=== PATIENT | female | born 1955 | race Hispanic/Latino ===

== ENCOUNTER 2016-10-14 18:36 | Emergency (ER) | payer MEDICARE ==
[2016-10-14 18:38] VITALS: BMI 31.1
[2016-10-14 19:29] VITALS: BP 140/66; PULSE 81; RESP 16; TEMP 98.3; O2SAT 100
--- NOTE | 2016-10-14 19:45 | ED PDOC ---
HPI: General Adult Time Seen by Provider: 10/14/16 19:27 Chief Complaint (Nursing): Abnormal Skin Integrity Chief Complaint (Provider): Lump on abdomen History Per: Patient History/Exam Limitations: no limitations Onset/Duration Of Symptoms: Unknown Current Symptoms Are (Timing): Still Present Severity: None Additional Complaint(s): Patient is a 61 year old female presenting to the ED complaining of a lump on her abdomen. Patient is unsure if the lump is "just fat." PMD: none Past Medical History Reviewed: Historical Data, Nursing Documentation, Vital Signs Vital Signs: Last Vital Signs Temp 98.3 F 10/14/16 19:21 Pulse 81 10/14/16 19:21 Resp 16 10/14/16 19:21 BP 140/66 10/14/16 19:21 Pulse Ox 100 10/14/16 19:47 - Medical History PMH: Anxiety, Arthritis, Asthma ("HOSPITALIZED A LONG TIME AGO"), Bronchitis, Fractures ("RIGHT ANKLE-PLATES PLACED"), Gastritis, Gall Bladder Disease, HTN - Surgical History Surgical History: Cholecystectomy - Family History Family History: States: Unknown Family Hx - Immunization History Hx Tetanus Toxoid Vaccination: No Hx Influenza Vaccination: No Hx Pneumococcal Vaccination: No - Home Medications Home Medications: Ambulatory Orders Medication Instructions Recorded Albuterol Sulfate [Proair Hfa] 0.09 mg IH Q6 09/05/14 Aspirin [Aspirin EC] 81 mg PO DAILY 09/05/14 Fluticasone/Salmeterol [Advair 50 - 500 puff INH BID 09/05/14 Diskus 500/50] Metoprolol Tartrate [Metoprolol 50 mg PO DAILY 09/05/14 Tartrate] Oxycodone HCl/Acetaminophen 1 tab PO Q6 PRN 09/05/14 [Endocet 325 mg-5 mg] Ranitidine HCl [Zantac 150] 150 mg PO BID 09/05/14 Alprazolam [Xanax] 0.5 mg PO TID 12/13/14 Lidocaine [Lidopain Patch] 4 % TP DAILY 12/13/14 Nitroglycerin [Nitrostat] 0.4 mg SL Q4 PRN 12/13/14 - Allergies Allergies/Adverse Reactions: Allergies Allergy/AdvReac Type Severity Reaction Status Date / Time SEASONAL Allergy Intermediate CONGESTION Uncoded 04/02/17 19:20 Review of Systems ROS Statement: Except As Marked, All Systems Reviewed And Found Negative Constitutional: Negative for: Fever Gastrointestinal: Positive for: Other (lump on abdomen) Physical Exam - Reviewed Nursing Documentation Reviewed: Yes Vital Signs Reviewed: Yes - Physical Exam Appears: Positive for: Well, Non-toxic, No Acute Distress Head Exam: Positive for: ATRAUMATIC, NORMAL INSPECTION, NORMOCEPHALIC Skin: Positive for: Normal Color, Warm, DRY Eye Exam: Positive for: Normal appearance, EOMI Neck: Positive for: Normal, Painless ROM Cardiovascular/Chest: Positive for: Regular Rate, Rhythm. Negative for: Gallop , Murmur Respiratory: Positive for: Normal Breath Sounds. Negative for: Accessory Muscle Use, Rhonchi, Wheezing, Respiratory Distress Gastrointestinal/Abdominal: Positive for: Normal Exam, Soft. Negative for: Tenderness, Mass, Distended, Guarding, Rebound Extremity: Positive for: Normal ROM Neurologic/Psych: Positive for: Alert, Oriented - ECG O2 Sat by Pulse Oximetry: 100 (RA) Pulse Ox Interpretation: Normal Medical Decision Making Medical Decision Making: Time: 19:30 Impression: 61 y/o female with lump Plan: Patient advised to increase weight loss. Scribe Attestation: Documented by Romana العلي acting as a scribe for GALINDO Locke. Provider Attestation: All medical record entries made by the Scribe were at my direction and personally dictated by me. I have reviewed the chart and agree that the record accurately reflects my personal performance of the history, physical exam, medical decision making, and the department course for this patient. I have also personally directed, reviewed, and agree with the discharge instructions and disposition. Disposition - Clinical Impression Clinical Impression: Lipoma, Bursitis - Patient ED Disposition Is Patient to be Admitted: No Counseled Patient/Family Regarding: Diagnosis, Need For Followup, Rx Given - Disposition Disposition: Routine/Home Disposition Time: 19:59 Condition: STABLE Instructions: Elbow Bursitis (ED), Lipoma (ED)
== END 2016-10-14 20:15 | disposition home or self-care (01) ==
LOC: H.ER 18:36
DX: D17.9 Benign lipomatous neoplasm, unspecified (principal)

== ENCOUNTER 2016-12-25 12:28 | Emergency (ER) | payer MEDICARE, OTHER ==
[2016-12-25 12:28] VITALS: BMI 31.1
[2016-12-25 14:22] LABS: BASO % 0.3 % (0.0-2.0); EOS % 0.5 % (0.0-4.0); HEMATOCRIT 44.7 % (34.0-47.0); LYMPH # 2.7 K/uL (1.0-4.3); LYMPH % 28.7 % (20.0-40.0); MEAN CELL VOLUME 91.6 fl (81.0-99.0); MEAN CORPUSCULAR HEMOGLOBIN 30.7 pg (27.0-31.0); MEAN CORPUSCULAR HGB CONC 33.5 g/dL (33.0-37.0); MEAN PLATELET VOLUME 8.6 fl (7.2-11.7); MONO # 0.7 K/uL (0.0-0.8); MONO % 7.3 % (0.0-10.0); NEUT % 63.2 % (50.0-75.0); RED CELL DISTRIBUTION WIDTH 13.3 % (11.5-14.5); WHITE BLOOD COUNT 9.6 K/uL (4.8-10.8)
[2016-12-25 14:30] LABS: ALB/GLOB RATIO 1.6 (1.0-2.1); ALKALINE PHOSPHATASE 92 U/L (38-126); ALT/SGPT 37 U/L (9-52); AST/SGOT 22 U/L (14-36); BILIRUBIN,TOTAL 0.6 mg/dl (0.2-1.3); BLOOD UREA NITROGEN 10 mg/dl (7-17); CALCIUM 9.4 mg/dL (8.4-10.2); CARBON DIOXIDE 26 mmol/L (22-30); CHLORIDE 106 mmol/L (98-107); GFR AFRICAN-AMERICAN > 60; GLUCOSE,RANDOM 86 mg/dL (65-105); POTASSIUM 4.4 MMOL/L (3.6-5.0); SODIUM 143 mmol/l (132-148); TOTAL PROTEIN 7.5 G/DL (6.3-8.2)
--- NOTE | 2016-12-25 15:57 | ED PDOC ---
HPI: General Adult Time Seen by Provider: 12/25/16 13:52 Chief Complaint (Nursing): Lower Extremity Problem/Injury Chief Complaint (Provider): various complaints History Per: Patient History/Exam Limitations: no limitations Additional Complaint(s): 61yo F in ED for eval of left chronic knee pain with exacerbation last night atrauamtic preventing her form sleeping with radiation of pain to hip. denies numbness abut admits to swelling to left leg unable to put wght on leg. pt admits to sees pain mngt and received percocets for pain control and steroid inj in the knee however she takes it did not work last night. pt also c/o of left elbow pain with intermittent sharp pain over couple of months without acute trauma. Pt states that that her right foot was injured en route to ED by EMS -states that the transport chair"rolled over" her right toes now with pain swelling and inbaility to range her toes skin is intact. Past Medical History Reviewed: Historical Data, Nursing Documentation, Vital Signs Vital Signs: Last Vital Signs Temp 97.6 F 12/25/16 16:20 Pulse 73 12/25/16 16:13 Resp 19 12/25/16 16:13 BP 121/81 12/25/16 16:13 Pulse Ox 96 12/25/16 16:13 - Medical History PMH: Anxiety, Arthritis, Asthma ("HOSPITALIZED A LONG TIME AGO"), Bronchitis, Fractures ("RIGHT ANKLE-PLATES PLACED"), Gastritis, Gall Bladder Disease, HTN - Surgical History Surgical History: Cholecystectomy - Family History Family History: States: Unknown Family Hx - Immunization History Hx Tetanus Toxoid Vaccination: No Hx Influenza Vaccination: No Hx Pneumococcal Vaccination: No - Home Medications Home Medications: Ambulatory Orders Medication Instructions Recorded Albuterol Sulfate [Proair Hfa] 0.09 mg IH Q6 09/05/14 Aspirin [Aspirin EC] 81 mg PO DAILY 09/05/14 Fluticasone/Salmeterol [Advair 50 - 500 puff INH BID 09/05/14 Diskus 500/50] Metoprolol Tartrate [Metoprolol 50 mg PO DAILY 09/05/14 Tartrate] Oxycodone HCl/Acetaminophen 1 tab PO Q6 PRN 09/05/14 [Endocet 325 mg-5 mg] Ranitidine HCl [Zantac 150] 150 mg PO BID 09/05/14 Alprazolam [Xanax] 0.5 mg PO TID 12/13/14 Lidocaine [Lidopain Patch] 4 % TP DAILY 12/13/14 Nitroglycerin [Nitrostat] 0.4 mg SL Q4 PRN 12/13/14 - Allergies Allergies/Adverse Reactions: Allergies Allergy/AdvReac Type Severity Reaction Status Date / Time SEASONAL Allergy Intermediate CONGESTION Uncoded 12/25/16 12:30 Review of Systems ROS Statement: Except As Marked, All Systems Reviewed And Found Negative Constitutional: Negative for: Fever, Chills, Weakness Musculoskeletal: Positive for: Other (knee pain, foot pain and elbow pain ) Physical Exam - Reviewed Nursing Documentation Reviewed: Yes Vital Signs Reviewed: Yes - Physical Exam Appears: Positive for: Well, Non-toxic, No Acute Distress Head Exam: Positive for: ATRAUMATIC, NORMAL INSPECTION, NORMOCEPHALIC Skin: Positive for: Normal Color, Warm, DRY ENT: Positive for: Normal ENT Inspection Cardiovascular/Chest: Positive for: Regular Rate, Rhythm Respiratory: Positive for: CNT, Normal Breath Sounds Gastrointestinal/Abdominal: Positive for: Normal Exam, Bowel Sounds, Soft. Negative for: Tenderness Back: Positive for: Normal Inspection Extremity: Positive for: Other (right knee: mild swelling no efuffsion dec RO due to pain. no defomrity good pedal oulse. mild calf tenderness no hip point tenderness, right foot: mild ertyhema noted to toes, no swelling tender to touch unable to range toes. left elbo: FROM nontendern no swelling no skin changes. ) Neurologic/Psych: Positive for: Alert, Oriented - Laboratory Results Result Diagrams: 12/25/16 14:15 12/25/16 14:15 - ECG O2 Sat by Pulse Oximetry: 100 - Radiology X-Ray: Interpreted by Nd X-Ray Interpretation: No Acute Disease - CT Scan/US US Other Rad Studies (CT/US): Radiology Report Reviewed (negative. ) - Progress ED Course And Treament: Pt will get Xray of knee, elbow, and otes and US to r/oDVT pain control with torodol IV. however pain not well controlled with torodol therefore will get morphine 4mg IV Medical Decision Making Medical Decision Making: pt given a knee immbolizer, YVONNE wrap to knee and ankle. advised to continue f.u with pain mgnt and advised to get further testing of knee via MRI and orthopedic consult. VS stable in ED. improved after morphine. Disposition - Clinical Impression Clinical Impression: Foot injury, Knee pain, Elbow pain - Patient ED Disposition Is Patient to be Admitted: No Counseled Patient/Family Regarding: Studies Performed, Diagnosis, Need For Followup, Rx Given - Disposition Referrals: [facility] [Outside] Disposition: Routine/Home Disposition Time: 16:35 Condition: IMPROVED Instructions: Arthralgia (ED)
[2016-12-25 16:14] VITALS: BP 121/81; PULSE 73; RESP 19
--- NOTE | 2016-12-25 16:20 | RAD ---
PROCEDURE: Right Foot Radiographs. HISTORY: foot injury COMPARISON: None. FINDINGS: BONES: Normal. No fracture. JOINTS: Normal. SOFT TISSUES: Normal. OTHER FINDINGS: None. IMPRESSION: Normal right foot radiographs.
[2016-12-25 16:21] VITALS: TEMP 97.6
--- NOTE | 2016-12-25 16:21 | US ---
PROCEDURE: Bilateral lower extremity venous duplex Doppler. HISTORY: calf emerita b/l with swelling COMPARISON: None available. TECHNIQUE: Bilateral common femoral, superficial femoral, popliteal and posterior tibial veins were evaluated. Flow was assessed with color Doppler, compressibility, assessment of phasic flow and augmentation response. FINDINGS: COMMON FEMORAL VEIN: Right CFV: Unremarkable. Left CFV: Unremarkable. SUPERFICIAL FEMORAL VEIN: Right SFV: Unremarkable. Left SFV: Unremarkable. POPLITEAL VEIN: Right Popliteal: Unremarkable. Left Popliteal: Unremarkable. POSTERIOR TIBIAL VEIN: Right PTV: Unremarkable. Left PTV: Unremarkable. OTHER FINDINGS: None. IMPRESSION: No evidence of deep venous thrombosis.
--- NOTE | 2016-12-25 16:24 | RAD ---
PROCEDURE: Radiographs of the left elbow. HISTORY: elbow pain COMPARISON: No prior. FINDINGS: BONES: Normal. No fracture. JOINTS: Normal. No osteoarthritis. SOFT TISSUES: Normal. JOINT EFFUSION: None. OTHER FINDINGS: None IMPRESSION: No evidence of acute fracture or dislocation. No evidence of joint effusion.
[2016-12-25 16:42] VITALS: O2SAT 100
--- NOTE | 2016-12-25 17:24 | RAD ---
PROCEDURE: Left Knee Radiographs. HISTORY: Pain. No history of recent/ related trauma provided COMPARISON: None. FINDINGS: BONES: Normal. No fracture. JOINTS: Normal. No osteoarthritis. JOINT EFFUSION: None. OTHER FINDINGS: Evidence of chondrocalcinosis common normal variant IMPRESSION: No significant or acute findings to account for/ related to the clinical presentation.
== END 2016-12-25 17:11 | disposition home or self-care (01) ==
LOC: H.ER 12:28
DX: M25.562 Pain in left knee (principal); M25.522 Pain in left elbow; S99.921A Unspecified injury of right foot, initial encounter; V09.9XXA Pedestrian injured in unspecified transport accident, initial encounter; Y92.89 Other specified places as the place of occurrence of the external cause
CPT/HCPCS: 29530; 73070; 73562; 73630; 80053; 85025; 93970; 96374; 96375; 99285; J1885; J2270

== ENCOUNTER 2017-12-07 12:07 | Emergency (ER) | payer MEDICARE ==
[2017-12-07 12:07] VITALS: BMI 31.1
[2017-12-07 12:23] VITALS: RESP 18; TEMP 99.1
[2017-12-07] MEDS ORDERED: Albuterol-Ipratrop 3 mg / 0.5 (3 ml) UD IH STA (12:42)
[2017-12-07] MEDS ORDERED: Sodium Chloride 0.9% 1,000 ML IV STA (12:42)
--- NOTE | 2017-12-07 12:47 | ED PDOC ---
HPI: Chest Pain Time Seen by Provider: 12/07/17 12:35 Chief Complaint (Nursing): Chest Pain Chief Complaint (Provider): Chest Pain History/Exam Limitations: no limitations Onset/Duration Of Symptoms: Days (x1) Current Symptoms Are (Timing): Still Present Additional Complaint(s): 62 y/o female with a history of bronchitis and asthma presents to the ED for SOB. Patient states her symptoms began yesterday associated with body aches and a right sided ear ache, along with a non-productive cough. Yesterday she states that she was in non-air conditioned environment. Patient denies any fever. Of note, patient has pmhx of anxiety, arthritis, HTN, fractures, gastritis, and gall bladder disease. PMD: Past Medical History Reviewed: Historical Data, Nursing Documentation, Vital Signs Vital Signs: Last Vital Signs Temp 99.1 F 12/07/17 12:19 Pulse 98 H 12/07/17 12:19 Resp 18 12/07/17 12:19 BP 179/89 H 12/07/17 12:19 Pulse Ox 95 12/07/17 14:25 - Medical History PMH: Anxiety, Arthritis, Asthma ("HOSPITALIZED A LONG TIME AGO"), Bronchitis, Fractures ("RIGHT ANKLE-PLATES PLACED"), Gastritis, Gall Bladder Disease, HTN - Surgical History Surgical History: Cholecystectomy - Family History Family History: States: Unknown Family Hx - Immunization History Hx Tetanus Toxoid Vaccination: No Hx Influenza Vaccination: No Hx Pneumococcal Vaccination: No - Home Medications Home Medications: Ambulatory Orders Medication Instructions Recorded Albuterol Sulfate [Proair Hfa] 0.09 mg IH Q6 09/05/14 Aspirin [Aspirin EC] 81 mg PO DAILY 09/05/14 Fluticasone/Salmeterol [Advair 50 - 500 puff INH BID 09/05/14 Diskus 500/50] Metoprolol Tartrate [Metoprolol 50 mg PO DAILY 09/05/14 Tartrate] Oxycodone HCl/Acetaminophen 1 tab PO Q6 PRN 09/05/14 [Endocet 325 mg-5 mg] Ranitidine HCl [Zantac 150] 150 mg PO BID 09/05/14 Alprazolam [Xanax] 0.5 mg PO TID 12/13/14 Lidocaine [Lidopain Patch] 4 % TP DAILY 12/13/14 Nitroglycerin [Nitrostat] 0.4 mg SL Q4 PRN 12/13/14 Amoxicillin [Amoxil 500 mg Cap] 500 mg PO TID #30 cap 12/07/17 - Allergies Allergies/Adverse Reactions: Allergies Allergy/AdvReac Type Severity Reaction Status Date / Time SEASONAL Allergy Intermediate CONGESTION Uncoded 12/25/16 12:30 Review of Systems ROS Statement: Except As Marked, All Systems Reviewed And Found Negative Constitutional: Positive for: Other (body aches). Negative for: Fever ENT: Positive for: Ear Pain (right ear ache) Respiratory: Positive for: Cough, Shortness of Breath. Negative for: Sputum Physical Exam - Reviewed Nursing Documentation Reviewed: Yes Vital Signs Reviewed: Yes - Physical Exam Appears: Positive for: Non-toxic, No Acute Distress Head Exam: Positive for: ATRAUMATIC, NORMAL INSPECTION, NORMOCEPHALIC Skin: Positive for: Normal Color, Warm, Dry Eye Exam: Positive for: EOMI, Normal appearance, PERRL ENT: Positive for: Normal ENT Inspection, TM Is/Are (normal bilaterally) Cardiovascular/Chest: Positive for: Regular Rate, Rhythm. Negative for: Murmur Respiratory: Positive for: Rhonchi (scattered), Wheezing (mild expiratory). Negative for: Respiratory Distress Gastrointestinal/Abdominal: Positive for: Normal Exam, Soft. Negative for: Tenderness Extremity: Positive for: Normal ROM Neurologic/Psych: Positive for: Alert (awake), Oriented (x3). Negative for: Motor/Sensory Deficits - Laboratory Results Result Diagrams: 12/07/17 13:46 12/07/17 13:46 - ECG O2 Sat by Pulse Oximetry: 95 (RA) Pulse Ox Interpretation: Normal Medical Decision Making Medical Decision Making: Time: 12:19 Impression: will be completed later per provider Initial Plan: * EKG * CMP * Troponin I Stat * CBC * Chest X-Ray * Albuterol 3 ml IH * Ativan 0.5 mg PO * IV Fluids Scribe Attestation: Documented by Donna Wade acting as a scribe for Anton Greene MD. MD Scribe Attestation: All medical record entries made by the Scribe were at my direction and personally dictated by me. I have reviewed the chart and agree that the record accurately reflects my personal performance of the history, physical exam, medical decision making, and the department course for this patient. I have also personally directed, reviewed, and agree with the discharge instructions and disposition. Time: 1318 CXR RESULTS FINDINGS: LUNGS: The lungs are well inflated. There is moderate pulmonary venous congestion. No focal consolidation. PLEURA: No significant pleural effusion identified, no pneumothorax apparent. CARDIOVASCULAR: Normal. OSSEOUS STRUCTURES: No significant abnormalities. VISUALIZED UPPER ABDOMEN: Normal. OTHER FINDINGS: None. IMPRESSION: No active pulmonary disease. Scribe Attestation: Documented by Car Ruiz, acting as a scribe for Dr. Castillo Walton MD. Provider Scribe Attestation: All medical record entries made by the Scribe were at my direction and personally dictated by me. I have reviewed the chart and agree that the record accurately reflects my personal performance of the history, physical exam, medical decision making, and the department course for this patient. I have also personally directed, reviewed, and agree with the discharge instructions and disposition. Disposition - Clinical Impression Clinical Impression: Pharyngitis, Heat exhaustion, Asthma - Patient ED Disposition Is Patient to be Admitted: No Counseled Patient/Family Regarding: Studies Performed, Diagnosis, Need For Followup, Rx Given - Disposition Referrals: Charbel Michael MD [Staff Provider] - Disposition: Routine/Home Disposition Time: 14:44 Condition: FAIR Prescriptions: Amoxicillin [Amoxil 500 mg Cap] 500 mg PO TID #30 cap Instructions: Asthma, Adult (DC), Sore Throat in Adults Forms: [employer] (Irish)
--- NOTE | 2017-12-07 13:10 | RAD ---
HISTORY: cough COMPARISON: 05/27/2014. FINDINGS: LUNGS: The lungs are well inflated. There is moderate pulmonary venous congestion. No focal consolidation. PLEURA: No significant pleural effusion identified, no pneumothorax apparent. CARDIOVASCULAR: Normal. OSSEOUS STRUCTURES: No significant abnormalities. VISUALIZED UPPER ABDOMEN: Normal. OTHER FINDINGS: None. IMPRESSION: No active pulmonary disease.
[2017-12-07] MEDS ORDERED: Albuterol-Ipratrop 3 mg / 0.5 (3 ml) UD ONE (13:22)
[2017-12-07 13:51] LABS: BASO # 0.1 K/uL (0.0-0.2); BASO % 0.3 % (0.0-2.0); EOS % 0.2 % (0.0-4.0); HEMOGLOBIN 14.4 g/dL (12.0-16.0); LYMPH # 2.4 K/uL (1.0-4.3); LYMPH % 15.2 % (20.0-40.0); MEAN CELL VOLUME 91.6 fl (81.0-99.0); MEAN CORPUSCULAR HGB CONC 33.8 g/dL (33.0-37.0); MEAN PLATELET VOLUME 7.8 fl (7.2-11.7); MONO # 1.1 K/uL (0.0-0.8); MONO % 6.8 % (0.0-10.0); NEUT # 12.3 K/uL (1.8-7.0); NEUT % 77.5 % (50.0-75.0); RBC 4.66 Mil/uL (3.80-5.20); RED CELL DISTRIBUTION WIDTH 13.4 % (11.5-14.5); WHITE BLOOD COUNT 15.8 K/uL (4.8-10.8)
[2017-12-07 14:02] LABS: ALB/GLOB RATIO 1.3 (1.0-2.1); ALBUMIN 4.2 g/dL (3.5-5.0); ALT/SGPT 38 U/L (9-52); AST/SGOT 22 U/L (14-36); BLOOD UREA NITROGEN 14 mg/dl (7-17); CALCIUM 9.5 mg/dL (8.4-10.2); GFR AFRICAN-AMERICAN > 60; GFR NON-AFRICAN AMERICAN > 60
[2017-12-07 15:59] VITALS: BP 159/86; PULSE 90; O2SAT 98
--- NOTE | 2017-12-08 14:59 | CARD ---
APPROVED REPORT EKG Measurement Heart [id number] <Conclusion> Normal sinus rhythm Normal ECG
== END 2017-12-07 15:15 | disposition home or self-care (01) ==
LOC: H.ER 12:07
DX: J02.9 Acute pharyngitis, unspecified (principal); T67.5XXA Heat exhaustion, unspecified, initial encounter; J45.909 Unspecified asthma, uncomplicated; I10 Essential (primary) hypertension; Z79.82 Long term (current) use of aspirin
CPT/HCPCS: 71045; 80053; 84484; 85025; 87070; 87430; 93005; 99283; J7040

== ENCOUNTER 2018-04-10 11:22 | Emergency (ER) | payer MEDICARE ==
[2018-04-10 11:29] VITALS: BP 130/83; PULSE 107; TEMP 98.1; O2SAT 95
[2018-04-10 11:30] VITALS: BMI 28.3
[2018-04-10] MEDS ORDERED: Morphine 4 MG/ML VIAL ONE (13:49)
--- NOTE | 2018-04-10 15:20 | ED PDOC ---
HPI: Back Chief Complaint (Provider): Left lower back pain History Per: Patient History/Exam Limitations: no limitations Onset/Duration Of Symptoms: Days (7) Current Symptoms Are (Timing): Still Present Quality Of Discomfort: Sharp Additional Complaint(s): 63 yo female with history of sciatica presents for evaluation of left lower back pain. Pt states she has had this in the past. Pt reports taking percocet 7.5mg at 6 am and 9 am. Pt states it did not help. Pt states she has not other symptoms - N/V/D, urinary symptoms. PT states this is her typical sciatica. <Mely Yin - Last Filed: 04/10/18 15:22> <Suri Negron - Last Filed: 04/11/18 15:41> Time Seen by Provider: 04/10/18 11:48 Chief Complaint (Nursing): Back Pain Past Medical History Reviewed: Historical Data, Nursing Documentation, Vital Signs Vital Signs: Last Vital Signs Temp 98.1 F 04/10/18 11:28 Pulse 107 H 04/10/18 11:28 Resp BP 130/83 04/10/18 11:28 Pulse Ox 95 04/10/18 11:28 - Medical History PMH: Anxiety, Arthritis, Asthma ("HOSPITALIZED A LONG TIME AGO"), Bronchitis, Fractures ("RIGHT ANKLE-PLATES PLACED"), Gastritis, Gall Bladder Disease, HTN - Surgical History Surgical History: Cholecystectomy - Family History Family History: States: Unknown Family Hx - Living Arrangements Living Arrangements: With Family - Social History Current smoker - smoking cessation education provided: No Alcohol: None Drugs: Denies - Immunization History Hx Tetanus Toxoid Vaccination: No Hx Influenza Vaccination: No Hx Pneumococcal Vaccination: No <Mely Yin - Last Filed: 04/10/18 15:22> Vital Signs: Last Vital Signs Temp 98.1 F 04/10/18 11:28 Pulse 107 H 04/10/18 11:28 Resp BP 130/83 04/10/18 11:28 Pulse Ox 95 04/10/18 15:27 <Suri Negron - Last Filed: 04/11/18 15:41> - Home Medications Home Medications: Ambulatory Orders Medication Instructions Recorded Albuterol Sulfate [Proair Hfa] 0.09 mg IH Q6 09/05/14 Fluticasone/Salmeterol [Advair 50 - 500 puff INH BID 09/05/14 Diskus 500/50] Metoprolol Tartrate 50 mg PO DAILY 09/05/14 Oxycodone HCl/Acetaminophen 1 tab PO Q6 PRN 09/05/14 [Endocet 325 mg-5 mg] RX: Aspirin [Aspirin EC] 81 mg PO DAILY 09/05/14 Ranitidine HCl [Zantac 150] 150 mg PO BID 09/05/14 Alprazolam [Xanax] 0.5 mg PO TID 12/13/14 Lidocaine [Lidopain Patch] 4 % TP DAILY 12/13/14 Nitroglycerin [Nitrostat] 0.4 mg SL Q4 PRN 12/13/14 Amoxicillin [Amoxil 500 mg Cap] 500 mg PO TID #30 cap 12/07/17 - Allergies Allergies/Adverse Reactions: Allergies Allergy/AdvReac Type Severity Reaction Status Date / Time SEASONAL Allergy Intermediate CONGESTION Uncoded 12/25/16 12:30 Supervising Attending Note - Attestation: I have personally seen and examined this patient.: No I have reviewed all pertinent clinical information: Yes <Suri Negron - Last Filed: 04/11/18 15:41> Review of Systems ROS Statement: Except As Marked, All Systems Reviewed And Found Negative Constitutional: Negative for: Fever, Chills Cardiovascular: Negative for: Chest Pain, Palpitations Respiratory: Negative for: Cough, Shortness of Breath Gastrointestinal: Negative for: Nausea, Vomiting, Abdominal Pain Genitourinary Female: Negative for: Dysuria, Frequency, Incontinence Musculoskeletal: Positive for: Back Pain <Mely Yin - Last Filed: 04/10/18 15:22> Physical Exam - Reviewed Nursing Documentation Reviewed: Yes Vital Signs Reviewed: Yes - Physical Exam Appears: Positive for: Well, Non-toxic, No Acute Distress Head Exam: Positive for: ATRAUMATIC, NORMAL INSPECTION, NORMOCEPHALIC Skin: Positive for: Normal Color, Warm, DRY Eye Exam: Positive for: Normal appearance ENT: Positive for: Normal ENT Inspection Neck: Positive for: Normal, Painless ROM Cardiovascular/Chest: Positive for: Regular Rate, Rhythm Respiratory: Positive for: Normal Breath Sounds. Negative for: Accessory Muscle Use, Respiratory Distress, Plerual Rub Back: Positive for: Normal Inspection Extremity: Positive for: Normal ROM Neurologic/Psych: Positive for: Alert, Oriented, Gait. Negative for: Facial Droop <Mely Yin - Last Filed: 04/10/18 15:22> - ECG O2 Sat by Pulse Oximetry: 95 <Mely Yin - Last Filed: 04/10/18 15:22> Medical Decision Making Medical Decision Making: Pt reports very little improvement after IM toradol and PO flexeril. 1515 - Pt feels better after IM morphine. <Mely Yin - Last Filed: 04/10/18 15:22> Disposition - Patient ED Disposition Is Patient to be Admitted: No Counseled Patient/Family Regarding: Diagnosis, Need For Followup - Disposition Disposition: Routine/Home Disposition Time: 15:18 <Mely Yin - Last Filed: 04/10/18 15:22> <Suri Negron - Last Filed: 04/11/18 15:41> - Clinical Impression Clinical Impression: Sciatica - Disposition Condition: STABLE Instructions: Sciatica (DC) Forms: [employer] (Iranian)
== END 2018-04-10 15:30 | disposition home or self-care (01) ==
LOC: H.ER 11:22
DX: M54.42 Lumbago with sciatica, left side (principal)
CPT/HCPCS: 96372; 99283; J1885; J2270